=== PATIENT | female | born 1940 | race Caucasian/White ===

== ENCOUNTER 2018-10-21 12:56 | Emergency (ER) | payer MEDICARE ==
[~2018-10-21] VITALS: Ht 157.5 cm; Wt 63.9 kg
[~2018-10-21 12:56] MED LIST: ACET325T14 PO; AMOX1TAB64 PO; BENZ-17 PO; CEFT1FRO2 IV; DOCU-131 PO; GUAI600T31 PO; HEPA50002 SQ; LACT1CAP35 PO; LISI-170 PO; LISINOPRIL; METO25TA35 PO; NICO-486 TD; POLY17PO5 PO
[2018-10-21 13:53] LABS: BASOPHILS # (AUTO) 0.06 x10^3/uL (0-0.1); BASOPHILS % (AUTO) 1 % (0-1); EOSINOPHILS # (AUTO) 0.13 x10^3/uL (0-0.4); EOSINOPHILS % (AUTO) 2 % (1-7); LYMPHOCYTES # (AUTO) 3.61 x10^3/uL (1-3.4); LYMPHOCYTES % (AUTO) 41 % (22-44); MD NO; MEAN CORPUSCULAR HEMOGLOBIN 31.4 pg (27.0-34.8); MEAN CORPUSCULAR HGB CONC 34.1 g/dL (32.4-35.8); MEAN CORPUSCULAR VOLUME 92.2 fL (80-100); MONOCYTES # (AUTO) 0.62 x10^3/uL (0.2-0.8); MONOCYTES % (AUTO) 7 % (2-9); NEUTROPHILS # (AUTO) 4.39 x10^3/uL (1.8-6.8); NEUTROPHILS % (AUTO) 50 % (42-75); PLATELET COUNT 181 x10^3/uL (130-400); RED BLOOD COUNT 4.74 x10^6/uL (3.82-5.3)
--- NOTE | 2018-10-21 14:03 | NUR ---
PT. IS A & O X 4 WITH C/O ELEVATED BP AND ASSOCIATED TENA. PT.'S NEUROASSESSMENT IS INTACT. PT.'S PUPILS ARE MYRANDA. LUNGS ARE CTA. MM ARE PINK AND MOIST WITH PULSES +2 THROUGHOUT. PT. WAS MEDICATED ORDERED. PT. HAS NO OTHER COMPLAINTS.
[2018-10-21 14:04] LABS: ALBUMIN 3.6 g/dL (3.4-5.0); ANION GAP 5 mmol/L (5-15); CALCIUM 9.2 mg/dL (8.5-10.1); CHLORIDE 110 mmol/L (98-107); CREATININE 1.19 mg/dL (0.55-1.02)
--- NOTE | 2018-10-21 15:14 | NUR ---
PT.'S BLOOD PRESSURE HAS IMPROVED. DISCHARGE INSTRUCTIONS AND A SCRIPT GIVEN WITH UNDERSTANDING VERBALIZED ALONG WITH WILLINGNESS TO COMPLY. PT. WAS AMBULATORY WITH A STEADY GAIT TO THE DISCHARGE DESK. VSS.
[2018-10-21 15:15] VITALS: BP 142/87
== END 2018-10-21 15:17 | disposition home or self-care (01) ==
LOC: ED 14:13
DX: I10 Essential (primary) hypertension (principal); F17.210 Nicotine dependence, cigarettes, uncomplicated
CPT/HCPCS: 36415; 80048; 82040; 85025; 93005; 99284

== ENCOUNTER → 2021-01-30 | Outpatient (CLI) | payer OTHER | END | disposition home or self-care (01) | LOC: CVU 14:12 | PROVIDERS: ATTEND Student in an Organized Health Care Education/Training Program | DX: I08.8 Other rheumatic multiple valve diseases (principal); I16.0 Hypertensive urgency | CPT/HCPCS: 93306; 93356 ==